=== PATIENT | female | born 1995 | race Two or more races ===

== ENCOUNTER 2021-12-13 14:25 | Emergency (ER) | payer OTHER ==
[~2021-12-13] VITALS: Ht 160 cm; Wt 90.3 kg
[2021-12-13] MEDS ORDERED: FLOVENT HFA10.6 GM (15:09)
== END 2021-12-13 19:18 | disposition home or self-care (01) ==
LOC: ER 14:25
DX: O03.6 Delayed or excessive hemorrhage following complete or unspecified spontaneous abortion (principal)